=== PATIENT | female | born 1960 | race Caucasian/White ===

== ENCOUNTER 2020-07-10 15:53 | Observation (INO) ==
[2020-07-10] MEDS ORDERED: ASPIRIN CHEW 324 MG PO STA (16:15)
--- NOTE | 2020-07-10 16:15 | Emergency Department Note ---
Impression & Plan Chest pain, Abnormal EKG, Abnormal echocardiogram ED Provider Note NAME: PETE KITCHEN AGE: 60 SEX: F : 1960 ARRIVES VIA: Walk-In INFORMANT: Patient ED PROVIDER(S): Ronak Griffin DO CHIEF COMPLAINT: Chest pain HPI: Patient is a 60-year-old diabetic, with a past medical history of hyperlipidemia who gets echoes yearly with [facility] cardiology who presents the ER for chest pain. Recent echo was abnormal per Pts report. Chest pain has been present for the past 2 months; it waxes and wanes in intensity but never goes away. It is not associated with exertion. She does intermittently get shortness of breath and jaw pain which comes and goes but always has left arm pain associated with it now. She saw cardiology and they have her set up for a cath coming up this week. She denies any belly pain, nausea, vomiting, or diarrhea. No dysuria, urgency or frequency. No other exacerbating or remitting factors. Does have a family history of CAD. Currently her chest pain feels like her baseline chest pain at this time. She did not take any aspirin. Pain feels like a dull heaviness. ROS: See above HPI for pertinent positives & negatives. A total of 10 systems reviewed and were otherwise negative. PAST MEDICAL HISTORY:See Below PAST SURGICAL HISTORY:See Below FAMILY HISTORY:See Below SOCIAL HISTORY:See Below HOME MEDICATIONS:See Below ALLERGIES:See Below VITALS:See Below PHYSICAL EXAMINATION: GENERAL: Sitting up in bed, alert, well appearing, well nourished, no distress, non-toxic EYE EXAM: normal conjunctiva. OROPHARYNX: no exudate, no erythema, lips, buccal mucosa, and tongue normal and mucous membranes are moist NECK: supple, no nuchal rigidity, no adenopathy, non-tender LUNGS: Clear to auscultation. Normal chest wall mechanics HEART: no murmurs, S1 normal and S2 normal ABDOMEN: abdomen soft, non-tender, normo-active bowel sounds, no masses, no rebound or guarding. UPPER EXTREMITIES: upper extremities are grossly normal. LOWER EXTREMITIES: No pitting edema. NEURO EXAM: Normal sensorium, cranial nerves II-XII grossly intact, normal speech, no gross weakness of arms, no gross weakness of legs. MEDICAL DECISION MAKING: Patient is a 60-year-old female with a recent stress test which was equivocal who presents the ER for chest pain. She has a cath set up within the next week. Her chest pain is persistent but waxes and wanes in intensity. Currently its baseline. IV was established blood work was obtained. Labs show no significant leukocytosis or anemia. BMP was unremarkable as well as bilirubin LFTs and troponin and lipase. EKG was nondiagnostic. Patient was updated bedside. Discussed with hospitalist admitted for further work-up after reviewing [facility] records. She was given 324 of aspirin. Triage Nursing notes reviewed. Limited review of prior medical records performed Vital Signs: reviewed and remarkable for no significant abnormalities Differential diagnosis: Differential diagnoses includes but is not limited to acute coronary syndrome, myocardial infarction, pericarditis, pulmonary embolus, aortic dissection, pneumonia, pneumothorax, musculoskeletal, shingles, esophageal. ER treatment provided: See below Diagnostics interpreted by me: ECG: Sinus bradycardia rate of 45 Left axis No PVCs Septal Q waves QTC 390 No old to compare to Cardiac Monitoring: An order was placed for continuous cardiac monitoring. The monitor shows a rate of 51 with sinus rhythm. Laboratory studies: As stated above and show below. Imaging studies: Portable AP upright 1 view of the chest shows no focal infiltrate or pneumothorax Consultation(s): Discussed with Ritesh Cheung for further evaluation Procedures: none Critical Care: None Past Med/Surg History Social History Smoking Status: Never smoker Preferred Language: Faroese Feels Safe at Home: Yes Allergies Allergies Allergy/AdvReac Type Severity Reaction Status Date / Time cephalexin [From Keflex] Allergy Mild Rash Verified 07/10/20 17:30 dextromethorphan Allergy Mild Rash Verified 07/10/20 17:32 [From Dimetapp Cold-Congestion] diphenhydramine Allergy Mild Rash Verified 07/10/20 17:32 [From Dimetapp Cold-Congestion] guaifenesin Allergy Mild Rash Verified 07/10/20 17:32 [From Dimetapp Cold-Congestion] phenylephrine Allergy Mild Rash Verified 07/10/20 17:32 [From Dimetapp Cold-Congestion] pseudoephedrine Allergy Mild Rash Verified 07/10/20 17:32 [From Dimetapp Cold-Congestion] Home Meds Home Medications Medication Instructions Recorded Confirmed ascorbic acid (vitamin C) [Vitamin 1,000 mg PO QAM 07/10/20 07/10/20 C] aspirin [Aspirin Low Dose] 81 mg PO QPM 07/10/20 07/10/20 atorvastatin 40 mg PO QPM 07/10/20 07/10/20 calcium carbonate [Calcium 600] 1,200 mg PO QPM 07/10/20 07/10/20 cyanocobalamin (vitamin B-12) 1,000 mcg PO QAM 07/10/20 07/10/20 [Vitamin B-12] escitalopram oxalate 30 mg PO QPM 07/10/20 07/10/20 garlic 1,000 mg PO QPM 07/10/20 07/10/20 levothyroxine 137 mcg PO QAM 07/10/20 07/10/20 metformin 1,000 mg PO BIDM 07/10/20 07/10/20 metoprolol succinate 25 mg PO QPM 07/10/20 07/10/20 multivitamin 1 tab PO QAM 07/10/20 07/10/20 omega 5-ydy-rhz-fish oil [Fish Oil] 1 cap PO QAM 07/10/20 07/10/20 omeprazole magnesium [Prilosec OTC] 20 mg PO QAM 07/10/20 07/10/20 zinc 100 mg PO QPM 07/10/20 07/10/20 Results & Data (ED) Vital Signs Vital Signs - 24 hr 07/10/20 15:54 Temperature 36.8 C Temperature Source Temporal Artery Scan Pulse Rate 81 Respiratory Rate 20 Respiratory Effort / Characteristics Non-Labored Spontaneous Respiratory Depth Normal Respiratory Pattern Regular Blood Pressure 122/79 Blood Pressure Mean 93 Pulse Oximetry 98 Oxygen Delivery Method Room Air Sepsis Recent Fever Within 48 Hours No Sepsis New/Unexplained Change in Mental Status No Sepsis Action Taken by Nursing No Action Required Laboratory Data Result diagrams: 07/10/20 16:24 07/10/20 16:24 Lab Results 07/10/20 07/10/20 Range/Units 16:24 16:24 WBC 9.65 (4.8-10.8) K/uL RBC 4.17 L (4.2-5.4) M/uL Hgb 13.5 (12.0-16.0) g/dL Hct 40.0 (37-47) % MCV 95.9 (80-100) fL MCH 32.4 (25-34) pg MCHC 33.8 (32-36) g/dL RDW Std Deviation 49.9 H (36.4-46.3) fL RDW Coeff of Emerita 14.1 (11.5-14.5) % Plt Count 385 (130-400) K/uL MPV 9.0 (7.4-10.4) fL Neutrophils % (Manual) 17.2 % Lymphocytes % (Manual) 56.1 % Reactive Lymphs % (Man) 21.6 % Monocytes % (Manual) 3.4 % Eosinophils % (Manual) 1.7 % Neutrophils # (Manual) 1.66 (1.4-6.5) K/uL Total Absolute Neuts 1.66 (1.4-6.5) K/uL Lymphocytes # (Manual) 5.41 H (1.2-3.4) K/uL Reactive Lymphs # 2.08 K/uL Total Abs Lymphocytes 7.50 H (1.2-3.4) K/uL Monocytes # (Manual) 0.33 (0.11-0.59) K/uL Eosinophils # (Manual) 0.16 (0-0.5) K/uL Garrett-Tolono Bodies 1+ Echinocytes 1+ Acanthocytes (Spur) 1+ Sodium 141 (136-145) mmol/L Potassium 4.0 (3.5-5.1) mmol/L Chloride 107 (98-107) mmol/L Carbon Dioxide 30 (21-32) mmol/L Anion Gap 5.0 (3-11) BUN 10 (7-18) mg/dl Creatinine 0.76 (0.6-1.2) mg/dl Est Cr Clr Drug Dosing 88.3 ml/min Est GFR ( Amer) 99.5 Est GFR (Non-Af Amer) 85.9 BUN/Creatinine Ratio 13.5 (10-20) Glucose 83 (70-99) mg/dl Calcium 9.1 (8.5-10.1) mg/dl Total Bilirubin 0.3 (0.2-1) mg/dl AST 11 L (15-37) U/L ALT 21 (12-78) U/L Alkaline Phosphatase 54 (45-117) U/L Troponin I < 0.015 (0-0.045) ng/ml Total Protein 6.8 (6.4-8.2) gm/dl Albumin 3.4 (3.4-5.0) gm/dl Globulin 3.4 (2.5-4.0) gm/dl Albumin/Globulin Ratio 1.0 (0.9-2) Lipase 156 (73-393) U/L Administered Medications Discontinued Medications Aspirin (Aspirin Chew 324 Mg) 324 mg PO NOW STA Stop: 07/10/20 16:16 Last Admin: 07/10/20 16:27 Dose: 324 mg Documented by: [id number] Discharge Plan Visit Data Chief Complaint: Chest Pain Stated Complaint: CHEST PAIN, SCHEDULED FOR CATH THIS COMING WEEK ED Provider: Ronak Griffin Discharge Problem: Chest pain, Abnormal EKG, Abnormal echocardiogram Forms Stand Alone Forms: [facility] Prescriptions Prescriptions: No Action multivitamin Tablet 1 tab PO QAM RF: 0 atorvastatin 40 mg tablet 40 mg PO QPM RF: 0 zinc 100 mg Tablet 100 mg PO QPM RF: 0 levothyroxine 137 mcg tablet 137 mcg PO QAM RF: 0 ascorbic acid (vitamin C) [Vitamin C] 1,000 mg Tablet 1,000 mg PO QAM RF: 0 cyanocobalamin (vitamin B-12) [Vitamin B-12] 1,000 mcg Tablet 1,000 mcg PO QAM RF: 0 aspirin [Aspirin Low Dose] 81 mg Tablet,Delayed Release (Dr/Ec) 81 mg PO QPM RF: 0 garlic 1,000 mg Capsule 1,000 mg PO QPM RF: 0 calcium carbonate [Calcium 600] 600 mg calcium (1,500 mg) Tablet 1,200 mg PO QPM RF: 0 metformin 1,000 mg tablet 1,000 mg PO BIDM RF: 0 metoprolol succinate 25 mg tablet extended release 24 hr 25 mg PO QPM RF: 0 escitalopram oxalate 20 mg tablet 30 mg PO QPM RF: 0 omeprazole magnesium [Prilosec OTC] 20 mg Tablet,Delayed Release (Dr/Ec) 20 mg PO QAM RF: 0 omega 6-urv-yvq-fish oil [Fish Oil] 1,200 (144-216) mg Capsule 1 cap PO QAM RF: 0 Discharge Problem: Chest pain Qualifiers: Chest pain type: unspecified Qualified Code(s): R07.9 - Chest pain, unspecified
[2020-07-10 16:40] LABS: Hemoglobin 13.5 g/dL (12.0-16.0); Mean Corpuscular Hemoglobin 32.4 pg (25-34); Mean Corpuscular Hgb Conc 33.8 g/dL (32-36); Mean Corpuscular Volume 95.9 fL (80-100); Platelet Count 385 K/uL (130-400); RDW Coefficient of Variation 14.1 % (11.5-14.5); RDW Standard Deviation 49.9 fL (36.4-46.3); Red Blood Count 4.17 M/uL (4.2-5.4); White Blood Count 9.65 K/uL (4.8-10.8)
--- NOTE | 2020-07-10 16:43 | XRay Report ---
XR chest 1V portable CLINICAL HISTORY: Chest Pain COMPARISON STUDY: No previous studies for comparison. FINDINGS: Lung volumes are normal. Lungs are clear. There is no pneumothorax or pleural effusion. Car diac size is normal. Mediastinal contours are normal. There is no evidence for pulmonary edema. IMPRESSION: No acute cardiopulmonary findings. ACT 112: Negative or not required by law. Electronically signed by: Alirio Henderson M.D. 07/10/2020 4:42 PM
[2020-07-10 16:57] LABS: Alanine Aminotransferase 21 U/L (12-78); Albumin Level 3.4 gm/dl (3.4-5.0); Aspartate Aminotransferase 11 U/L (15-37); BUN Creatinine Ratio 13.5 (10-20); Blood Urea Nitrogen 10 mg/dl (7-18); Calcium 9.1 mg/dl (8.5-10.1); Carbon Dioxide 30 mmol/L (21-32); Chloride 107 mmol/L (98-107); Creatinine Clr Calc Pharmacy 88.3 ml/min; Est GFR (African American) 99.5; Est GFR (Non-African American) 85.9; Glucose 83 mg/dl (70-99); Lipase 156 U/L (73-393); Sodium 141 mmol/L (136-145)
[2020-07-10 17:02] LABS: Alkaline Phosphatase 54 U/L (45-117); Bilirubin,Total 0.3 mg/dl (0.2-1); Globulin 3.4 gm/dl (2.5-4.0); Total Protein 6.8 gm/dl (6.4-8.2); Troponin I < 0.015 ng/ml (0-0.045)
[2020-07-10 17:26] LABS: ANC (manual) 1.66 K/uL (1.4-6.5); Acanthocytes 1+; Echinocytes 1+; Eosinophils # (manual) 0.16 K/uL (0-0.5); Eosinophils % (manual) 1.7 %; Howell-Jolly Bodies 1+; Lymphocytes # (manual) 5.41 K/uL (1.2-3.4); Lymphocytes % (manual) 56.1 %; Monocytes # (manual) 0.33 K/uL (0.11-0.59); Monocytes % (manual) 3.4 %; Neutrophils # (manual) 1.66 K/uL (1.4-6.5); Neutrophils % (manual) 17.2 %; Reactive Lymphocytes # (manual) 2.08 K/uL; Reactive Lymphocytes % (manual) 21.6 %
--- NOTE | 2020-07-10 17:27 | History & Physical Report ---
Date of Service July 10, 2020 Assessment & Plan (1) Chest pain: Impression: This is a 60-year-old female that follows with Dr. Martinez at at [facility]. Nuclear stress test the beginning of June showed normal perfusion LAD and circumflex. Inferior wall was technically limited due to attenuation artifact. Patient scheduled for cardiac catheterization this week. She developed chest pain today which was rated 10 out of 10. She is being brought in for follow-up ISOS and consideration of bronchoscopy tomorrow or Sunday. Dr. Martinez has been consulted. Will admit to PCU for telemetry. Chest pain is improved but Mrs. Collins still complains of bandlike tightness. We'll admit to telemetry unit and continue on her metoprolol succinate. Hemodynamically stable Check repeat troponin at 10 PM and again with a.m. labs Get repeat EKG in the morning Patient scheduled for cardiac catheterization Sunday at [address] Martinez If pain is resolved and troponin is negative and morning, patient could be discharged home for outpatient catheterization. We will make patient n.p.o. after midnight in the event that the troponin rises or EKG is abnormal in the morning Further management per cardiology (2) Abnormal EKG: History of abnormal EKG with mild repolarization since 2014 as well as mild left ventricular hypertrophy Troponin within normal limits Check repeat EKG in the morning or with pain Cardiology consulted Admit to telemetry (3) Diabetes mellitus type 2 in obese: Continue patient's usual oral medications She is not on insulin Check hemoglobin A1c Sliding scale insulin with NovoLog (4) GERD (gastroesophageal reflux disease): Patient is on omeprazole as an outpatient. Will hold this and start pa ntoprazole PO while inpatient (5) Hyperlipidemia: Continue patient's atorvastatin Lipid panel was within normal limits as of 02/15/2020 Continue outpatient management (6) Hypothyroidism: Continue levothyroxine Outpatient management (7) DVT prophylaxis: Patient has a normal troponin as well as a normal EKG. Consequently, we will not begin a heparin drip Patient started on heparin 5000 units SQ every 8 hours Ambulate as tolerated while on telemetry Please refer to Dr. Pack's addendum for corrections and further recommendations. History of Present Illness Chief Complaint: Chest pain Primary Care Provider: Quita Johnson MD Attending: Dr. Pack This is a 60-year-old female who presents to the emergency department with chest pain. She has a past medical history including diabetes mellitus ty pe 2, chronic chest pain, hyperlipidemia, hypothyroidism, osteoarthritis, osteoporosis, psoriasis, history of positive PPD with negative chest x-ray, history of splenectomy, adenomatous polyp, abnormal EKG. Mrs. Collins has been following with [facility] cardiology and most recently has been seen by Dr. Martinez. She has a history of mild repolarization changes on her EKG since 2014. Has been felt that this is due to mild left ventricular hypertrophy. She had a recent nuclear stress test in early June which revealed normal perfusion in the LAD and circumflex territories. However, evaluation of the inferior wall was limited due to attenuation artifact. As a result, the patient is scheduled for cardiac catheterization this coming week. Mrs. Collins states that she has had increased chest pain this month as felt like her heart has been racing. Discomfort is bandlike across her chest. On arrival to the emergency department she reports that she had some pain that radiated into her jaw and arm. This has since resolved. She does take 81 mg of aspirin daily. She was given 324 mg in the emergency department. Home medications include atorvastatin, aspirin, and metoprolol succinate due to her chest pain. Most recent echocardiogram was 06/29/2020 and revealed normal left ventricular wall motion. Left ventricular ejection fraction was preserved at 62%. There was mild left atrial enlargement. Grade 1 diastolic dysfunction. There is mild enlargement of the aortic root at 4 cm. There is also mild proximal ascending aorta enlargement at 4.2 cm. Lipid panel completed 02/15/2020 was within normal limits. Triglycerides 70, cholesterol 137, HDL 66, non-HDL cholesterol 71, LDL cholesterol 57. She denies any fever or chills. She denies any awareness of tachyarrhythmia. She has no fever or chills. She has no recent illness. 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 Her most recent tests were last Sunday and last Sunday both of which were negative. Allergies Allergy/AdvReac Type Severity Reaction Status Date / Time cephalexin [From Keflex] Allergy Mild Rash Verified 07/10/20 17:30 dextromethorphan Allergy Mild Rash Verified 07/10/20 17:32 [From Dimetapp Cold-Congestion] diphenhydramine Allergy Mild Rash Verified 07/10/20 17:32 [From Dimetapp Cold-Congestion] guaifenesin Allergy Mild Rash Verified 07/10/20 17:32 [From Dimetapp Cold-Congestion] phenylephrine Allergy Mild Rash Verified 07/10/20 17:32 [From Dimetapp Cold-Congestion] pseudoephedrine Allergy Mild Rash Verified 07/10/20 17:32 [From Dimetapp Cold-Congestion] Home Medications Medication Instructions Recorded Confirmed Type ascorbic acid (vitamin C) [Vitamin 1,000 mg PO QAM 07/10/20 07/10/20 History C] aspirin [Aspirin Low Dose] 81 mg PO QPM 07/10/20 07/10/20 History atorvastatin 40 mg PO QPM 07/10/20 07/10/20 History calcium carbonate [Calcium 600] 1,200 mg PO QPM 07/10/20 07/10/20 History cyanocobalamin (vitamin B-12) 1,000 mcg PO QAM 07/10/20 07/10/20 History [Vitamin B-12] escitalopram oxalate 30 mg PO QPM 07/10/20 07/10/20 History garlic 1,000 mg PO QPM 07/10/20 07/10/20 History levothyroxine 137 mcg PO QAM 07/10/20 07/10/20 History metformin 1,000 mg PO BIDM 07/10/20 07/10/20 History metoprolol succinate 25 mg PO QPM 07/10/20 07/10/20 History multivitamin 1 tab PO QAM 07/10/20 07/10/20 History omega 0-lpg-zzj-fish oil [Fish Oil] 1 cap PO QAM 07/10/20 07/10/20 History omeprazole magnesium [Prilosec OTC] 20 mg PO QAM 07/10/20 07/10/20 History zinc 100 mg PO QPM 07/10/20 07/10/20 History Past Med/Surg History Medical History Adenomatous polyp Depression Diabetes mellitus type 2 in obese GERD (gastroesophageal reflux disease) Hyperlipidemia Hypothyroidism Osteoarthritis Osteoporosis Positive PPD Chest x-ray normal; no treatment required Psoriasis Surgical History Status post splenectomy Family History Father Heart disease, Onset Age: 70 History of stent; history of pacemaker defibrillator Stroke, Onset Age: 70 Hypertension Diabetes Unknown No problems noted. Mother Breast cancer, Onset Age: 70 Diabetes Grandmother (Maternal) Breast cancer Grandfather (Paternal) Breast cancer Aunt Breast cancer Three paternal aunts with breast cancer Sister Breast cancer DCIS Heart disease Mitral valve prolapse Brother Heart disease Mitral valve prolapse Prostate cancer Son Diabetes Social History Smoking Status: Former smoker Tobacco Type: Cigarettes packs per day: 1; Years Smoked: 18; Smoking End Date: 05/21/1995; Number of Years Since Quit: 25; Hx Alcohol Use: Yes (Less than five drinks per year) Alcohol type: beer Hx Substance Use: No Preferred Language: Azeri Communication Ability: Effective Assistant Professor Of Radiology Required: No Beliefs That Will Affect Care: None marital status: Current Living Situation: Spouse current occupational status: employed 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 [employer] Other Information That Helps Us Care for You: No Feels Safe at Home: Yes Safety Concerns: Feels Safe At This Time Sexual Activity: has been sexually active, but not for at least 12 months Sexual Activity Comment: Male partners Assistive Devices: None Review of Systems Review of Systems: All systems reviewed & are unremarkable except as noted in Subjective Physical Exam Physical Exam: GENERAL : No acute distress EYES: No icterus, gaze conjugate NOSE: No evidence of epistaxis MOUTH: No lesions or candidiasis NECK: Supple LUNGS: CTA B/L, no wheezes, rales or rhonchi HEART: Regular, rate controlled. No appreciation of murmurs gallops or rubs ABDOMEN: Soft, NT, ND, BS Present EXTREMITIES: No LE edema, pedal pulses intact NEURO: A&OX3. Cranial nerves II through XII appear grossly intact without focal deficit Results & Data Results & Data ([facility]) Vital Signs (Past 12 Hours) Vital Signs Temp Pulse Resp BP Pulse Ox 07/10/20 15:54 36.8 C 81 20 122/79 98 Laboratory Results 07/10/20 16:24 07/10/20 16:24 07/10/20 16:24 Troponin I < 0.015 Diagnostic Findings XR chest 1V portable CLINICAL HISTORY: Chest Pain COMPARISON STUDY: No previous studies for comparison. FINDINGS: Lung volumes are normal. Lungs are clear. There is no pneumothorax or pleural effusion. Cardiac size is normal. Mediastinal contours are normal. There is no evidence for pulmonary edema. IMPRESSION: No acute cardiopulmonary findings. ACT 112: Negative or not required by law. Electronically signed by: Alirio Henderson M.D. 07/10/2020 4:42 PM Code Status & VTE Plan Code Status Full resuscitation VTE Prophylaxis Plan VTE Prophylaxis will be ordered: Yes Supervising Physician Co-Signing Physician Notes Attending note : pt seen and examined , care co-ordinated with Fior Cheung PA-C 60 yo F presented with angina symptoms recent Cardiac NC stress test suggestive of possible inf wall ischemia pt was schedule for elective diagnostic Cardiac cath on Sunday pt is admitted to PCU /tele floor , follow serial cardiac markers cardiology eval requested plan for possible cardiac cath on Sunday07/12/20 Please refer to further documentation by Fior DAVIS for discussion of other medical issues Dorothy Pack MD (1) Chest pain Chest pain type: unspecified Qualified Code(s): R07.9 - Chest pain, unspecified
[2020-07-10] MEDS ORDERED: GLUCOSE 10 TABS/TUBE PO PRN (19:35)
[2020-07-10] MEDS ORDERED: NITROGLYCERIN SL 0.4 MG/TAB TAB SL PRN (19:35)
[2020-07-10] MEDS ORDERED: ACETAMINOPHEN 325 MG TAB PO PRN (19:35)
[2020-07-10] MEDS ORDERED: ONDANSETRON INJ 2 MG/ML 2 ML VIAL IV PRN (19:35)
[2020-07-10] MEDS ORDERED: DEXTROSE 50% 50 ML SYRINGE IV PRN (19:35)
[2020-07-10] MEDS ORDERED: GLUCOSE 40% GEL 15 GM TUBE PO PRN (19:35)
[2020-07-10] MEDS ORDERED: CARBOHYDRATES FOR HYPOGLYCEMIA PO PRN (19:35)
[2020-07-10] MEDS ORDERED: GLUCAGON FOR INJ 1 MG VIAL SQ PRN (19:35)
[2020-07-10] MEDS: INSULIN ASPART 100 UNITS/ML 3 ML PEN SC SCH (21:01)
[2020-07-10] MEDS: METOPROLOL SUCC 25MG EXT REL TAB PO SCH (21:02)
[2020-07-10] MEDS: HEPARIN SOD 5,000 UNIT/0.5 ML VIAL SQ SCH (21:02)
[2020-07-10] MEDS: ESCITALOPRAM OXALATE 10 MG TAB PO SCH (21:08)
[2020-07-10] MEDS: CALCIUM CARBONATE 1250MG TAB PO SCH (21:08)
[2020-07-10] MEDS: ATORVASTATIN 40 MG TAB PO SCH (21:08)
[2020-07-11] MEDS: LEVOTHYROXINE SODIUM 137 MCG TABLET PO SCH (05:30)
[2020-07-11 05:56] LABS: Basophils # (auto) 0.06 K/uL (0-0.2); Basophils % (auto) 0.7 %; Eosinophils # (auto) 0.25 K/uL (0-0.5); Hematocrit (blood only) 40.9 % (37-47); Hemoglobin 13.5 g/dL (12.0-16.0); Immature Granulocytes # (auto) 0.02 K/uL (0.00-0.02); Immature Granulocytes % (auto) 0.2 %; Lymphocytes # (auto) 3.99 K/uL (1.2-3.4); Lymphocytes % (auto) 47.5 %; Mean Corpuscular Hemoglobin 31.6 pg (25-34); Mean Corpuscular Volume 95.8 fL (80-100); Mean Platelet Volume 9.2 fL (7.4-10.4); Monocytes # (auto) 0.59 K/uL (0.11-0.59); Neutrophils # (auto) 3.49 K/uL (1.4-6.5); Neutrophils % (auto) 41.6 %; Platelet Count 387 K/uL (130-400); RDW Standard Deviation 49.3 fL (36.4-46.3); Red Blood Count 4.27 M/uL (4.2-5.4)
[2020-07-11 06:09] LABS: INR 1.1 (0.9-1.1); Partial Thromboplastin Ratio 0.9; Partial Thromboplastin Time 23.9 Seconds (21.0-31.0); Prothrombin Time 11.3 Seconds (9.0-12.0)
[2020-07-11 06:28] LABS: Blood Urea Nitrogen 13 mg/dl (7-18); Carbon Dioxide 29 mmol/L (21-32); Chloride 108 mmol/L (98-107); Est GFR (African American) 104.5; Est GFR (Non-African American) 90.1; Potassium 4.3 mmol/L (3.5-5.1); Sodium 142 mmol/L (136-145)
[2020-07-11 06:29] LABS: BUN Creatinine Ratio 17.6 (10-20); Creatinine Clr Calc Pharmacy 92.2 ml/min; Glucose 118 mg/dl (70-99)
[2020-07-11 06:34] LABS: Troponin I < 0.015 ng/ml (0-0.045)
[2020-07-11] MEDS: INSULIN ASPART 100 UNITS/ML 3 ML PEN SC SCH ×4 (07:56→20:25)
[2020-07-11] MEDS ORDERED: metFORMIN HCL 500 MG TAB PO SCH (08:00)
[2020-07-11] MEDS: HEPARIN SOD 5,000 UNIT/0.5 ML VIAL SQ SCH ×2 (08:00→20:25)
[2020-07-11] MEDS: MULTIVITAMIN TAB PO SCH (08:00)
[2020-07-11] MEDS: ASCORBIC ACID 500 MG TAB PO SCH (08:01)
[2020-07-11] MEDS: CYANOCOBALAMIN 500 MCG TABLET (VITAMIN B-12) PO SCH (08:01)
[2020-07-11] MEDS: ASPIRIN 81 MG ECTAB PO SCH (08:01)
[2020-07-11] MEDS: PANTOprazole 40 MG TAB PO SCH (08:01)
[2020-07-11] MEDS: OMEGA-3 (PURIFIED FISH OIL) 1 GM CAP PO SCH (08:01)
--- NOTE | 2020-07-11 12:08 | Cardiology Consultation ---
Date of Consultation July 11, 2020 Assessment & Plan (1) Chest pain: (2) Diabetes mellitus type 2 in obese: (3) Abnormal nuclear stress test: This patient was scheduled for cardiac catheterization on Sunday. Schedule permitting, we will proceed Sunday with the cardiac catheterization. I have explained the risk benefit and intent of the procedure to the patient and she is willing to proceed. History of Present Illness Attending Physician: Dorothy Pack MD History of Present Illness This is a 60-year-old female who is usually followed by Dr. Martinez through our clinic. She was having some chest discomfort and a nuclear stress test was completed. That suggested possible inferior wall ischemia or at least the imaging could not clearly differentiate due to the quality of the imaging. She was to have a cardiac catheterization completed on Sunday but she had chest pain here over the weekend and presented to the emergency department where she has been admitted. Cardiac troponins are negative. Her EKG shows no acute changes. Allergies Allergy/AdvReac Type Severity Reaction Status Date / Time cephalexin [From Keflex] Allergy Mild Rash Verified 07/10/20 17:30 dextromethorphan Allergy Mild Rash Verified 07/10/20 17:32 [From Dimetapp Cold-Congestion] diphenhydramine Allergy Mild Rash Verified 07/10/20 17:32 [From Dimetapp Cold-Congestion] guaifenesin Allergy Mild Rash Verified 07/10/20 17:32 [From Dimetapp Cold-Congestion] phenylephrine Allergy Mild Rash Verified 07/10/20 17:32 [From Dimetapp Cold-Congestion] pseudoephedrine Allergy Mild Rash Verified 07/10/20 17:32 [From Dimetapp Cold-Congestion] Home Medications Medication Instructions Recorded Confirmed Type ascorbic acid (vitamin C) [Vitamin 1,000 mg PO QAM 07/10/20 07/10/20 History C] aspirin [Aspirin Low Dose] 81 mg PO QPM 07/10/20 07/10/20 History atorvastatin 40 mg PO QPM 07/10/20 07/10/20 History calcium carbonate [Calcium 600] 1,200 mg PO QPM 07/10/20 07/10/20 History cyanocobalamin (vitamin B-12) 1,000 mcg PO QAM 07/10/20 07/10/20 History [Vitamin B-12] escitalopram oxalate 30 mg PO QPM 07/10/20 07/10/20 History garlic 1,000 mg PO QPM 07/10/20 07/10/20 History levothyroxine 137 mcg PO QAM 07/10/20 07/10/20 History metformin 1,000 mg PO BIDM 07/10/20 07/10/20 History metoprolol succinate 25 mg PO QPM 07/10/20 07/10/20 History multivitamin 1 tab PO QAM 07/10/20 07/10/20 History omega [id number]-fish oil [Fish Oil] 1 cap PO QAM 07/10/20 07/10/20 History omeprazole magnesium [Prilosec OTC] 20 mg PO QAM 07/10/20 07/10/20 History zinc 100 mg PO QPM 07/10/20 07/10/20 History Patient History Medical History Adenomatous polyp Depression Diabetes mellitus type 2 in obese GERD (gastroesophageal reflux disease) Hyperlipidemia Hypothyroidism Osteoarthritis Osteoporosis Positive PPD Chest x-ray normal; no treatment required Psoriasis Surgical History Status post splenectomy Family History Father Heart disease, Onset Age: 70 History of stent; history of pacemaker defibrillator Stroke, Onset Age: 70 Hypertension Diabetes Unknown No problems noted. Mother Breast cancer, Onset Age: 70 Diabetes Grandmother (Maternal) Breast cancer Grandfather (Paternal) Breast cancer Aunt Breast cancer Three paternal aunts with breast cancer Sister Breast cancer DCIS Heart disease Mitral valve prolapse Brother Heart disease Mitral valve prolapse Prostate cancer Son Diabetes Social History Smoking Status: Former smoker Tobacco Type: Cigarettes packs per day: 1; Years Smoked: 18; Number of Years Since Quit: 25; Hx Alcohol Use: Yes (Less than five drinks per year) Alcohol type: beer Hx Substance Use: No Preferred Language: Citizen Of [place] Communication Ability: Effective Pathology Manager Required: No Beliefs That Will Affect Care: None marital status: Current Living Situation: Spouse current occupational status: employed 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 Physical Exam Physical Exam: General: no acute distress and stated age Head: normocephalic, no masses, lesions, tenderness or abnormalities Eyes: conjunctiva are pink and non-injected, sclera clear Neck: supple, no adenopathy, no bruits, normal jugular venous pulse, no hepatojugular reflux Chest: normal shape and normal respiratory effort Lungs: clear to auscultation and percussion Cardiac Exam: - regular rate & rhythm, no murmurs gallops or rubs - normal S1, normal S2 Pulses: 2(+) throughout Abdomen: abdomen soft, non-tender, no abnormal masses and no hepatosplenomegaly Musculoskeletal: no gait disturbance, no joint inflammation, no deforming arthritis Extremities: no edema and no cyanosis Neuro: grossly normal exam Results & Data ([facility]) Vital Signs (Past 12 Hours) Vital Signs Temp Pulse Pulse Resp BP Pulse Ox 07/11/20 08:39 52 L 07/11/20 08:24 36.9 C 53 L 20 96/58 L 94 07/11/20 03:00 36.8 C 49 L 20 112/73 94 Laboratory Results Laboratory Results - last 24 hr 07/10/20 07/10/20 07/10/20 16:24 16:24 17:55 WBC 9.65 RBC 4.17 L Hgb 13.5 Hct 40.0 MCV 95.9 MCH 32.4 MCHC 33.8 RDW Std Deviation 49.9 H RDW Coeff of Emerita 14.1 Plt Count 385 MPV 9.0 Immature Gran % (Auto) Neut % (Auto) Lymph % (Auto) [place] % (Auto) Eos % (Auto) Baso % (Auto) Neut # (Auto) Lymph # (Auto) [place] # (Auto) Eos # (Auto) Baso # (Auto) Immature Gran # (Auto) Neutrophils % (Manual) 17.2 Lymphocytes % (Manual) 56.1 Reactive Lymphs % (Man) 21.6 Monocytes % (Manual) 3.4 Eosinophils % (Manual) 1.7 Neutrophils # (Manual) 1.66 Total Absolute Neuts 1.66 Lymphocytes # (Manual) 5.41 H Reactive Lymphs # 2.08 Total Abs Lymphocytes 7.50 H Monocytes # (Manual) 0.33 Eosinophils # (Manual) 0.16 Blood Smear Review Pending [place] Bodies 1+ Echinocytes 1+ Acanthocytes (Spur) 1+ PT INR APTT PTT Ratio Sodium 141 Potassium 4.0 Chloride 107 Carbon Dioxide 30 Anion Gap 5.0 BUN 10 Creatinine 0.76 Est Cr Clr Drug Dosing 88.3 Est GFR ( Amer) 99.5 Est GFR (Non-Af Amer) 85.9 BUN/Creatinine Ratio 13.5 Glucose 83 POC Glucose Estimat Average Glucose Hemoglobin A1c Calcium 9.1 Magnesium Total Bilirubin 0.3 AST 11 L ALT 21 Alkaline Phosphatase 54 Troponin I < 0.015 Total Protein 6.8 Albumin 3.4 Globulin 3.4 Albumin/Globulin Ratio 1.0 Lipase 156 COVID-19 Eval Order Covid19 [facility]Now [facility] SARS-CoV-2, RNA, NAAT 07/10/20 07/10/20 07/10/20 17:55 19:42 22:18 WBC RBC Hgb Hct MCV MCH MCHC RDW Std Deviation RDW Coeff of Emerita Plt Count MPV Immature Gran % (Auto) Neut % (Auto) Lymph % (Auto) [place] % (Auto) Eos % (Auto) Baso % (Auto) Neut # (Auto) Lymph # (Auto) [place] # (Auto) Eos # (Auto) Baso # (Auto) Immature Gran # (Auto) Neutrophils % (Manual) Lymphocytes % (Manual) Reactive Lymphs % (Man) Monocytes % (Manual) Eosinophils % (Manual) Neutrophils # (Manual) Total Absolute Neuts Lymphocytes # (Manual) Reactive Lymphs # Total Abs Lymphocytes Monocytes # (Manual) Eosinophils # (Manual) Blood Smear Review Garrett-[place] Bodies Echinocytes Acanthocytes (Spur) PT INR APTT PTT Ratio Sodium Potassium Chloride Carbon Dioxide Anion Gap BUN Creatinine Est Cr Clr Drug Dosing Est GFR ( Amer) Est GFR (Non-Af Amer) BUN/Creatinine Ratio Glucose POC Glucose 95 Estimat Average Glucose Hemoglobin A1c Calcium Magnesium Total Bilirubin AST ALT Alkaline Phosphatase Troponin I < 0.015 Total Protein Albumin Globulin Albumin/Globulin Ratio Lipase COVID-19 Eval Order SARS-CoV-2, RNA, NAAT NEGATIVE 07/11/20 07/11/20 07/11/20 05:43 05:43 05:43 WBC 8.40 RBC 4.27 Hgb 13.5 Hct 40.9 MCV 95.8 MCH 31.6 MCHC 33.0 RDW Std Deviation 49.3 H RDW Coeff of Emerita 14.0 Plt Count 387 MPV 9.2 Immature Gran % (Auto) 0.2 Neut % (Auto) 41.6 Lymph % (Auto) 47.5 [place] % (Auto) 7.0 Eos % (Auto) 3.0 Baso % (Auto) 0.7 Neut # (Auto) 3.49 Lymph # (Auto) 3.99 H [place] # (Auto) 0.59 Eos # (Auto) 0.25 Baso # (Auto) 0.06 Immature Gran # (Auto) 0.02 Neutrophils % (Manual) Lymphocytes % (Manual) Reactive Lymphs % (Man) Monocytes % (Manual) Eosinophils % (Manual) Neutrophils # (Manual) Total Absolute Neuts Lymphocytes # (Manual) Reactive Lymphs # Total Abs Lymphocytes Monocytes # (Manual) Eosinophils # (Manual) Blood Smear Review [place] Bodies Echinocytes Acanthocytes (Spur) PT 11.3 INR 1.1 APTT 23.9 PTT Ratio 0.9 Sodium 142 Potassium 4.3 Chloride 108 H Carbon Dioxide 29 Anion Gap 5.0 BUN 13 Creatinine 0.73 Est Cr Clr Drug Dosing 92.2 Est GFR ( Amer) 104.5 Est GFR (Non-Af Amer) 90.1 BUN/Creatinine Ratio 17.6 Glucose 118 H POC Glucose Estimat Average Glucose Hemoglobin A1c Calcium 9.0 Magnesium 2.0 Total Bilirubin AST ALT Alkaline Phosphatase Troponin I < 0.015 Total Protein Albumin Globulin Albumin/Globulin Ratio Lipase COVID-19 Eval Order SARS-CoV-2, RNA, NAAT 07/11/20 07/11/20 07/11/20 05:43 07:53 11:15 WBC RBC Hgb Hct MCV MCH MCHC RDW Std Deviation RDW Coeff of Emerita Plt Count MPV Immature Gran % (Auto) Neut % (Auto) Lymph % (Auto) [place] % (Auto) Eos % (Auto) Baso % (Auto) Neut # (Auto) Lymph # (Auto) [place] # (Auto) Eos # (Auto) Baso # (Auto) Immature Gran # (Auto) Neutrophils % (Manual) Lymphocytes % (Manual) Reactive Lymphs % (Man) Monocytes % (Manual) Eosinophils % (Manual) Neutrophils # (Manual) Total Absolute Neuts Lymphocytes # (Manual) Reactive Lymphs # Total Abs Lymphocytes Monocytes # (Manual) Eosinophils # (Manual) Blood Smear Review Garrett-[place] Bodies Echinocytes Acanthocytes (Spur) PT INR APTT PTT Ratio Sodium Potassium Chloride Carbon Dioxide Anion Gap BUN Creatinine Est Cr Clr Drug Dosing Est GFR ( Amer) Est GFR (Non-Af Amer) BUN/Creatinine Ratio Glucose POC Glucose 106 H 86 Estimat Average Glucose Pending Hemoglobin A1c Pending Calcium Magnesium Total Bilirubin AST ALT Alkaline Phosphatase Troponin I Total Protein Albumin Globulin Albumin/Globulin Ratio Lipase COVID-19 Eval Order SARS-CoV-2, RNA, NAAT Medications Administered Current Inpatient Medications Acetaminophen (Acetaminophen 325 Mg Tab) 650 mg PO Q4H PRN PRN Reason: Pain or Fever Stop: 08/09/20 19:34 Ascorbic Acid (Ascorbic Acid 500 Mg Tab) 1,000 mg PO QAM [facility] Stop: 08/10/20 08:59 Last Admin: 07/11/20 08:01 Dose: 1,000 mg Documented by: Aspirin (Aspirin 81 Mg Ectab) 81 mg PO QAM [facility] Stop: 08/10/20 08:59 Last Admin: 07/11/20 08:01 Dose: 81 mg Documented by: Atorvastatin Calcium (Atorvastatin 40 Mg Tab) 40 mg PO QPM [facility] Stop: 08/09/20 20:59 Last Admin: 07/10/20 21:08 Dose: 40 mg Documented by: Calcium Carbonate (Calcium Carbonate 1250mg Tab) 1,250 mg PO QPM [facility] Stop: 08/09/20 20:59 Last Admin: 07/10/20 21:08 Dose: 1,250 mg Documented by: Cyanocobalamin (Cyanocobalamin 500 Mcg Tablet (Vitamin B-12)) 1,000 mcg PO QAM [facility] Stop: 08/10/20 08:59 Last Admin: 07/11/20 08:01 Dose: 1,000 mcg Documented by: Dextrose (Dextrose 50% 50 Ml Syringe) 25 - 50 ml IV UD PRN; Protocol PRN Reason: Hypoglycemia Protocol Stop: 08/09/20 19:34 Escitalopram Oxalate (Escitalopram Oxalate 10 Mg Tab) 30 mg PO QPM [facility] Stop: 08/09/20 20:59 Last Admin: 07/10/20 21:08 Dose: 30 mg Documented by: Fish Oil ([place]-3 (Purified Fish Oil) 1 Gm Cap) 1 gm PO QAM [facility] Stop: 08/10/20 08:59 Last Admin: 07/11/20 08:01 Dose: 1 gm Documented by: Glucagon (Glucagon For Inj 1 Mg Vial) 1 mg SQ UD PRN; Protocol PRN Reason: Hypoglycemia Protocol Stop: 08/09/20 19:34 Glucose (Glucose 10 Tabs/Tube) 4 - 8 tabs PO UD PRN; Protocol PRN Reason: Hypoglycemia Protocol Stop: 08/09/20 19:34 Glucose (Glucose 40% Gel 15 Gm Tube) 15 - 30 gm PO UD PRN; Protocol PRN Reason: Hypoglycemia Protocol Stop: 08/09/20 19:34 Heparin Sodium (Porcine) (Heparin Sod 5,000 Unit/0.5 Ml Vial) 5,000 units SQ Q12 [facility] Stop: 08/09/20 20:59 Last Admin: 07/11/20 08:00 Dose: 5,000 units Documented by: Sodium Chloride (Nss 1000ml) 1,000 mls @ 90 mls/hr IV .Q11H7M [facility] Stop: 07/12/20 11:06 Insulin Aspart (Insulin Aspart 100 Units/Ml 3 Ml Pen) 0 units SC ACHS [facility] Stop: 08/09/20 20:59 Last Admin: 07/11/20 11:51 Dose: Not Given Documented by: Levothyroxine Sodium (Levothyroxine Sodium 137 Mcg Tablet) 137 mcg PO DAILYBB [facility] Stop: 08/10/20 06:29 Last Admin: 07/11/20 05:30 Dose: 137 mcg Documented by: Metformin HCl (Metformin Hcl 500 Mg Tab) 1,000 mg PO BIDM [facility] Stop: 08/10/20 07:59 Last Admin: 07/11/20 08:00 Dose: 1,000 mg Documented by: Metoprolol Succinate (Metoprolol Succ 25mg Ext Rel Tab) 25 mg PO QPM [facility] Stop: 08/09/20 20:59 Last Admin: 07/10/20 21:02 Dose: Not Given Documented by: Miscellaneous (Carbohydrates For Hypoglycemia ) 15 - 30 gm PO UD PRN PRN Reason: Hypoglycemia Protocol Stop: 08/09/20 19:34 Multivitamins (Multivitamin Tab) 1 tab PO QAM [facility] Stop: 08/10/20 08:59 Last Admin: 07/11/20 08:00 Dose: 1 tab Documented by: Nitroglycerin (Nitroglycerin Sl 0.4 Mg/Tab Tab) 0.4 mg SL UD PRN PRN Reason: Chest Pain Stop: 08/09/20 19:34 Ondansetron HCl (Ondansetron Inj 2 Mg/Ml 2 Ml Vial) 4 mg IV Q6H PRN PRN Reason: Nausea Stop: 08/09/20 19:34 Pantoprazole Sodium (Pantoprazole 40 Mg Tab) [facility] [place] Stop: 08/10/20 08:59 Last Admin: 07/11/20 08:01 Dose: 40 mg Documented by: (1) Chest pain Chest pain type: unspecified Qualified Code(s): R07.9 - Chest pain, unspecified
--- NOTE | 2020-07-11 13:10 | Electrocardiogram Report ---
Test Reason : Blood Pressure : / mmHG Vent. Rate : 045 BPM Atrial Rate : 045 BPM P-R Int : 208 ms QRS Dur : 120 ms QT Int : 452 ms P-R-T Axes : 032 -12 018 degrees QTc Int : 390 ms Sinus bradycardia Non-specific intra-ventricular conduction delay Borderline ECG No previous ECGs available Confirmed by Edwin Gaffney ([id number]) on 07/11/2020 1:10:05 PM Referred By: Confirmed By:Bart Gaffney
--- NOTE | 2020-07-11 13:19 | Electrocardiogram Report ---
Test Reason : Blood Pressure : / mmHG Vent. Rate : 049 BPM Atrial Rate : 049 BPM P-R Int : 184 ms QRS Dur : 120 ms QT Int : 464 ms P-R-T Axes : 076 -05 033 degrees QTc Int : 419 ms Sinus bradycardia Non-specific intra-ventricular conduction delay Abnormal ECG When compared with ECG of 10-JUL-2020 16:04, (unconfirmed) No significant change was found Confirmed by Edwin Gaffney ([id number]) on 07/11/2020 1:18:40 PM Referred By: REFERRED SELF Confirmed By:Bart Gaffney
--- NOTE | 2020-07-11 17:22 | Hospitalist Progress Note ---
Date of Service July 11, 2020 Assessment & Plan (1) Chest pain: presented with chest pain , angina symptoms recent abnormal Nc stress test in cardiology clinic scheduled for cardiac cath in am appreciate input from Cardiology (2) Abnormal EKG: no chest pain or angina symptoms at present cardiology following cardiac cath in am (3) Diabetes mellitus type 2 in obese: insulin ssi (4) GERD (gastroesophageal reflux disease): (5) Hyperlipidemia: (6) Hypothyroidism: (7) DVT prophylaxis: Full code Disposition : Dc home when medically stable Admission and Anticipated Discharge Date Admission Date: July 10, 2020 Subjective no complain of chest pain or SOB scheduled for cardiac cath in am Review of Systems Review of Systems: All systems reviewed & are unremarkable except as noted in Subjective Physical Exam Physical Exam: GENERAL : No acute distress EYES: No icterus, gaze conjugate NOSE: No evidence of epistaxis MOUTH: No lesions or candidiasis NECK: Supple LUNGS: CTA B/L, no wheezes, rales or rhonchi HEART: Regular, rate controlled. No appreciation of murmurs gallops or rubs ABDOMEN: Soft, NT, ND, BS Present EXTREMITIES: No LE edema, pedal pulses intact NEURO: A&OX3. Cranial nerves II through XII appear grossly intact without foca l deficit Results & Data Results & Data ([facility]) Vital Signs (Past 12 Hours) Vital Signs Temp Pulse Pulse Resp BP BP Pulse Ox 07/11/20 16:14 50 L 07/11/20 15:03 36.6 C 53 L 20 103/61 96 07/11/20 12:16 36.5 C 54 L 20 95/63 L 94 07/11/20 08:39 52 L 07/11/20 08:24 36.9 C 53 L 20 96/58 L 94 (1) Chest pain Chest pain type: unspecified Qualified Code(s): R07.9 - Chest pain, unspecified
[2020-07-11] MEDS: METOPROLOL SUCC 25MG EXT REL TAB PO SCH (20:25)
[2020-07-11] MEDS: CALCIUM CARBONATE 1250MG TAB PO SCH (20:25)
[2020-07-11] MEDS: ESCITALOPRAM OXALATE 10 MG TAB PO SCH (20:25)
[2020-07-11] MEDS: ATORVASTATIN 40 MG TAB PO SCH (20:25)
[2020-07-12] MEDS ORDERED: SODIUM CHLORIDE 0.9% 1000ML 1,000 ML IV SCH
[2020-07-12 06:18] LABS: Estimated Average Glucose 134 mg/dl; Hemoglobin A1C 6.3 % (4.5-5.6)
[2020-07-12] MEDS: LEVOTHYROXINE SODIUM 137 MCG TABLET PO SCH (06:26)
[2020-07-12] MEDS: INSULIN ASPART 100 UNITS/ML 3 ML PEN SC SCH ×2 (07:57→11:51)
--- NOTE | 2020-07-12 08:26 | Electrocardiogram Report ---
Test Reason : Blood Pressure : / mmHG Vent. Rate : 055 BPM Atrial Rate : 055 BPM P-R Int : 180 ms QRS Dur : 122 ms QT Int : 456 ms P-R-T Axes : 049 -27 042 degrees QTc Int : 436 ms Sinus bradycardia Non-specific intra-ventricular conduction delay Abnormal ECG When compared with ECG of 11-JUL-2020 07:09, Questionable change in initial forces of Septal leads Confirmed by Edwin Gaffney ([id number]) on 07/12/2020 8:26:13 AM Referred By: REFERRED SELF Confirmed By:Bart Gaffney
[2020-07-12] MEDS: CYANOCOBALAMIN 500 MCG TABLET (VITAMIN B-12) PO SCH (08:55)
[2020-07-12] MEDS: OMEGA-3 (PURIFIED FISH OIL) 1 GM CAP PO SCH (08:55)
[2020-07-12] MEDS: ASCORBIC ACID 500 MG TAB PO SCH (08:55)
[2020-07-12] MEDS: MULTIVITAMIN TAB PO SCH (08:55)
[2020-07-12] MEDS: PANTOprazole 40 MG TAB PO SCH (08:55)
[2020-07-12] MEDS: ASPIRIN 81 MG ECTAB PO SCH (08:56)
[2020-07-12] MEDS: HEPARIN SOD 5,000 UNIT/0.5 ML VIAL SQ SCH (09:40)
[2020-07-12] MEDS ORDERED: niCARdipine HCL INJ 2.5 MG/ML 10 ML AMP ONE (13:24)
[2020-07-12] MEDS ORDERED: NITROGLYCERIN/D5W 100MCG/ML 20ML SYR ONE (13:24)
--- NOTE | 2020-07-12 13:26 | Pre Anesthesia Assessment ---
Date of Service July 12, 2020 Pre Sedation Assessment Vital Signs Temp Pulse Pulse Resp BP BP Pulse Ox 07/12/20 11:43 36.5 C 51 L 20 105/66 94 07/12/20 07:00 50 L 07/12/20 06:59 36.7 C 61 20 99/63 L 96 07/12/20 02:55 36.5 C 50 L 19 117/72 93 07/11/20 23:09 36.9 C 54 L 19 92/59 L 95 07/11/20 19:25 36.6 C 58 L 19 96/59 L 95 07/11/20 16:14 50 L 07/11/20 15:03 36.6 C 53 L 20 103/61 96 Pre-Sedation Airway Assessment Smoking Status: Former smoker Hx Sleep Apnea: No Short, Thick Neck: No Thyromental Distance: > or= 3.5 Finger Breadths Oral Cavity: + Dentures Mallampati Class: III ASA: ASA3 NPO Status Date of Last Intake of Fluids: 07/11/20 Time of Last Intake of Fluids: 17:30 Date of Last Intake of Solid Food: 07/11/20 Time of Last Intake of Solid Foods: 17:30 Notes The planned sedation has been discussed with the patient. Informed Consent was obtained. I have identified the patient, determined the appropriateness of sedation and have assessed the patient immediately prior to the procedure. All medicine(s) and interventions are by my order.
[2020-07-12] MEDS ORDERED: HEPARIN (PORCINE) 1000 UNIT/ML 10 ML (CATH LAB USE ONLY) ONE (13:29)
[2020-07-12] MEDS ORDERED: MIDAZOLAM HCL 1 MG/ML 2ML VIAL ONE (13:31)
--- NOTE | 2020-07-12 13:57 | Cardiac Catheterization ---
Date of Service July 12, 2020 Cardiac Cath Report Cardiac Cath Report Procedure: 1. Coronary angiography History: This is a 60-year-old female who was referred for cardiac catheterization due to an abnormal pharmacologic nuclear stress test. Procedure summary: After informed consent was obtained the patient was brought to the cardiac catheterization lab where she was prepped and draped in the usual manner for right transradial approach. Preformed diagnostic 5 [place] coronary catheters used for the coronary angiograms. Following the procedure the patient was returned to her room in stable condition. ACC data: Start time 1:31 PM End time 1:43 PM Opening aortic pressure 104/66 Closing aortic pressure 93/61 LV pressurevalve not crossed Sedation 1 mg intravenous Versed IV fluids 60 cc normal saline Contrast Optiray 57 cc Fluoroscopy time 1.9 minutes Radiation 661 mGy DAP 55.91 cm/m Co. dominant system AUC score 7 Coronary angiography: Selective injections of the right coronary artery revealed to be Co-dominant. The right coronary artery has luminal irregularities but is widely patent. Selective injections of the left coronary artery reveal the left main trunk to be patent. The left circumflex artery is large and codominant with the right coronary artery giving off a large PDA branch. The second marginal branch is large and bifurcates into 2 equal large branches. The left circumflex artery is widely patent. The LAD extends all the way around the apex of the heart. The LAD gives off a large first diagonal branch. The LAD system is widely patent. Summary: Widely patent coronary anatomy with minor luminal irregularities of the right coronary artery. Recommendations: Continued risk factor modification.
--- NOTE | 2020-07-12 15:06 | Communication Note ---
Date of Service: July 12, pt had diagnostic cardiac cath today shows Widely patent coronary anatomy with minor luminal irregularities of the right coronary artery. 2020 updated by Cardiology pt is stable to be discharged home later today -no change in medication , Hospital follow up with family physician and cardiology follow up will be scheduled Dorothy Pack MD
--- NOTE | 2020-07-12 17:04 | Discharge Summary ---
Date of Service July 12, 2020 Admission HPI Per Admitting Provider Attending: Dr. Pack This is a 60-year-old female who presents to the emergency department with chest pain. She has a past medical history including diabetes mellitus type 2, chronic chest pain, hyperlipidemia, hypothyroidism, osteoarthritis, osteoporosis, psoriasis, history of positive PPD with negative chest x-ray, history of splenectomy, adenomatous polyp, abnormal EKG. Mrs. Collins has been following with [facility] cardiology and most recently has been seen by Dr. Martinez. She has a history of mild repolarization changes on her EKG since 2014. Has been felt that this is due to mild left ventricular hypertrophy. She had a recent nuclear stress test in early June which revealed normal perfusion in the LAD and circumflex territories. However, evaluation of the inferior wall was limited due to attenuation artifact. As a result, the patient is scheduled for cardiac catheterization this coming week. Mrs. Collins states that she has had increased chest pain this month as felt like her heart has been racing. Discomfort is bandlike across her chest. On arrival to the emergency department she reports that she had some pain that radiated into her jaw and arm. This has since resolved. She does take 81 mg of aspirin daily. She was given 324 mg in the emergency department. Home medications include atorvastatin, aspirin, and metoprolol succinate due to her chest pain. Most recent echocardiogram was 06/29/2020 and revealed normal left ventricular wall motion. Left ventricular ejection fraction was preserved at 62%. There was mild left atrial enlargement. Grade 1 diastolic dysfunction. There is mild enlargement of the aortic root at 4 cm. There is also mild proximal ascending aorta enlargement at 4.2 cm. Lipid panel completed 02/15/2020 was within normal limits. Triglycerides 70, cholesterol 137, HDL 66, non-HDL cholesterol 71, LDL cholesterol 57. She denies any fever or chills. She denies any awareness of tachyarrhythmia. She has no fever or chills. She has no recent illness. 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 and is tested twice weekly for Covid. Her most recent tests were last Sunday and last Sunday both of which were negative. Principal Diagnosis Chest pain , no evidence of acute coronary event Cardiac cath normal coronaries Discharge Exam GENERAL : No acute distress EYES: No icterus, gaze conjugate NOSE: No evidence of epistaxis MOUTH: No lesions or candidiasis NECK: Supple LUNGS: CTA B/L, no wheezes, rales or rhonchi HEART: Regular, rate controlled. No appreciation of murmurs gallops or rubs ABDOMEN: Soft, NT, ND, BS Present EXTREMITIES: No LE edema, pedal pulses intact NEURO: A&OX3. Cranial nerves II through XII appear grossly intact without focal deficit Discharge Data Allergies Allergy/AdvReac Type Severity Reaction Status Date / Time cephalexin [From Keflex] Allergy Mild Rash Verified 07/10/20 17:30 dextromethorphan Allergy Mild Rash Verified 07/10/20 17:32 [From Dimetapp Cold-Congestion] diphenhydramine Allergy Mild Rash Verified 07/10/20 17:32 [From Dimetapp Cold-Congestion] guaifenesin Allergy Mild Rash Verified 07/10/20 17:32 [From Dimetapp Cold-Congestion] phenylephrine Allergy Mild Rash Verified 07/10/20 17:32 [From Dimetapp Cold-Congestion] pseudoephedrine Allergy Mild Rash Verified 07/10/20 17:32 [From Dimetapp Cold-Congestion] Consultations 07/10/20 17:04 ED Decision to Admit Stat 07/10/20 19:35 Consult Cardiology Routine Procedures Performed Operation Date: 07/12/20 15:00 Actual Procedures p Cath, Coronaries ONLY (no LV) - Nikunj Stanford DO s Cineradiography w/Routine Exam - Geoffrey So MD Ordered Studies 07/12/20 13:18 CL Cath Imgs for PACS use only Routine Hospital Course (1) Chest pain: presented with chest pain , angina symptoms recent abnormal Nc stress test in cardiology clinic had cardiac cath today appreciate input from Cardiology (2) Abnormal EKG: no chest pain or angina symptoms at present cardiology following cardiac cath" shows normal coronaries , no occlusive diease stable to be discharged home today , no change in med needed (3) Diabetes mellitus type 2 in obese: insulin ssi (4) GERD (gastroesophageal reflux disease): (5) Hyperlipidemia: (6) Hypothyroidism: (7) DVT prophylaxis: Full code Disposition : discharge to home today Total Time Total Time Spent Total Time Spent (In Minutes): 35 mins Total Time Includes: Examination of the Patient, Discharge Planning and Medication Reconciliation Discharge Plan Discharge Items Patient Disposition: Home - Self-Care Reason For Visit: CHEST PAIN Discharge Diagnosis: Chest pain , no evidence of acute coronary event Cardiac cath normal coronaries Activity: As commented below Non-emergency contact: Primary Care Provider Call non-emergency contact if: you have any medication questions Follow-up/Referrals: Quita Johnson MD [Primary Care Provider] - (Date & Time 07/16/2020 1:40 PM Provider Marnie Smart MD Department Internal Medicine [facility] ) Deloris Metz PA-C [Physician Manager Immunology] - (Date & Time 08/05/2020 9:30 AM Provider Deloris Metz PA-C Department Cardiology, [facility] ) Diet: Heart Healthy Addtl Attending Provider Instructions: Follow up with family physician and Supervisor Rides as scheduled Addtl Assistant Spa Manager Provider Instructions: ACTIVITY RECOMMENDATIONS: Excess manipulation of the wrist should be avoided for the next 24-48 hours. * No lifting over 2 pounds (approximately a 1/2 gallon of milk) with the utilized arm for 24 hours. * No strenuous activity such as bowling or tennis for 3 days. * Keep the site of the procedure covered with a bandage for 24 hours. *You may shower the day after the procedure. Do not take a tub bath or submerge the puncture site in water for the next 3 days. *Do not operate any motorized equipment for 3 days. SPECIAL CARE INSTRUCTIONS: The site may be slightly bruised and sore following your procedure. Should any of the following occur, contact the Dr. who performed your procedure. 1. Redness/inflammation, swelling, chills, or fever, or colored drainage at procedure site within 3-7 days after your procedure. 2. Coldness, discoloration, ongoing numbness, severe pain, or swelling. Expect mild tingling of hand and tenderness at the puncture site for up to three days. If this persists beyond three days, or other symptoms develop, notify the Dr. who performed your procedure. BLEEDING: If the procedure site on your wrist begins to bleed, do not panic 1. Place 1 or 2 fingers firmly just slightly above the insertion site to stop the bleeding. You may be able to feel your pulse as you hold pressure. 2. Lift your finger after 5 minutes to see if the bleeding has stopped. 3. Once the bleeding has stopped, gently wipe the wrist area clean with a bandage. * If the bleeding from your wrist does not stop after 10 minutes, or if there is a large amount of bleeding or spurting, call 911 (do not drive yourself to the hospital). SKIN IRRITATION: * You may experience some redness and/or swelling in the area where radiation was administered. If any skin irritation occurs, please contact your family physician. FOLLOW UP VISIT: Keep any scheduled doctor appointments. Pending Studies at Discharge: No Stand-Alone Forms: My [facility], Smoking Cessation Medications and DC Order Prescriptions: Continued multivitamin Tablet 1 tab PO QAM RF: 0 atorvastatin 40 mg tablet 40 mg PO QPM RF: 0 zinc 100 mg Tablet 100 mg PO QPM RF: 0 levothyroxine 137 mcg tablet 137 mcg PO QAM RF: 0 ascorbic acid (vitamin C) [Vitamin C] 1,000 mg Tablet 1,000 mg PO QAM RF: 0 cyanocobalamin (vitamin B-12) [Vitamin B-12] 1,000 mcg Tablet 1,000 mcg PO QAM RF: 0 aspirin [Aspirin Low Dose] 81 mg Tablet,Delayed Release (Dr/Ec) 81 mg PO QPM RF: 0 garlic 1,000 mg Capsule 1,000 mg PO QPM RF: 0 calcium carbonate [Calcium 600] 600 mg calcium (1,500 mg) Tablet 1,200 mg PO QPM RF: 0 metformin 1,000 mg tablet 1,000 mg PO BIDM RF: 0 metoprolol succinate 25 mg tablet extended release 24 hr 25 mg PO QPM RF: 0 escitalopram oxalate 20 mg tablet 30 mg PO QPM RF: 0 omeprazole magnesium [Prilosec OTC] 20 mg Tablet,Delayed Release (Dr/Ec) 20 mg PO QAM RF: 0 omega 0-iml-npy-fish oil [Fish Oil] 1,200 (144-216) mg Capsule 1 cap PO QAM RF: 0 Discharge Orders: Discharge Order (Routine); Ordered 07/12/20 Ordered By: Dorothy Saini/Other Patient Handouts: Managing Type 2 Diabetes, Managing Diabetes: The A1C Test Admission Data Admit Date/Time: 07/10/20 18:54 Attending Provider: Dorothy Pack Admit Provider: Dorothy Pack Primary Care Provider: Quita Johnson Other Providers: Dorothy aPck ; Sandro Martinez
--- NOTE | 2020-07-13 08:40 | Post Anesthesia Assessment ---
Date of Service July 13, 2020 Post Sedation Assessment Vital Signs Temp Pulse Pulse Resp BP Pulse Ox 07/12/20 17:35 36.8 C 50 L 18 109/72 95 07/12/20 16:30 52 L 18 106/70 96 07/12/20 16:00 51 L 16 113/78 95 07/12/20 15:16 36.8 C 50 L 18 109/72 95 07/12/20 14:40 54 L 15 109/70 93 07/12/20 14:25 52 L 15 109/66 91 07/12/20 14:20 53 L 07/12/20 14:08 36.7 C 58 L 15 107/66 92 07/12/20 13:52 56 L 17 110/72 92 07/12/20 11:43 36.5 C 51 L 20 105/66 94 Recovery Score Activity: Moves 4 extremities Respiration: Deep Breath/Cough Circulation: +/-20% PreAnes Value Consciousness: Fully Awake Oxygen Saturation: > 92% On Room Air Post Anesthesia Score: 10 Discharge Sedation Level of Care: Fast Track Phase II Post Sedation Plan On clinical assessment, the patient appears to have tolerated the sedation without complications. Patient is recovering as anticipated. Patient will continue to be monitored by nursing and may be discharged when sedation discharge criteria are met per below protocol. Upon Completions of procedure up to 15 minutes continue every 5 minute vital signs and the P.A.R. score; then discharge to a Phase I or Fast Track to Phase II per the following guidelines: * Discharge Patient to appropriate Phase II area if PAR is 8 or greater or return to pre- procedure baseline. The post - procedure orders will be as directed. * If PAR score is less than 8 or not return to pre-procedure baseline then patient will follow Phase I monitoring till PAR is reached for Phase II. The Phase I may be done in procedure room or may call to secure a Phase I area. * If naloxone or flumazenil are used for reversal, hold in Phase I for continued monitoring from when last reversal dose was given for a minimum of 60 minutes or longer pending the nurse and/or physician discretion of patient condition before discharge to Phase II. Please call the Sedation Physician to re-evaluate and complete post-note for discharge to Phase II area. Do NOT discharge from procedure sedation or Phase 1 until post- sedation evaluation note is complete by procedure /sedation MD Sedation Discharge Instructions to be given to the patient at discharge to home.
== END 2020-07-12 18:31 | disposition home or self-care (01) ==
LOC: ED 15:53 → INTOOBSV 18:54 → 2S 18:54
PROC: CLB.CCO (2020-07-12 15:00)